=== PATIENT | male | born 1990 | race Caucasian/White ===

== ENCOUNTER 2017-11-07 10:46 | Emergency (ER) | payer SELFPAY | END 2017-11-07 12:59 | disposition home or self-care (01) | LOC: ER 10:46 | DX: L03.011 Cellulitis of right finger (principal) | CPT/HCPCS: 99283 ==

== ENCOUNTER 2018-02-03 13:56 | Emergency (ER) | payer SELFPAY ==
[2018-02-03] MEDS: IBUPROFEN 600 MG TABLET. PO (14:55)
[2018-02-03] MEDS: PENICILLIN G BENZATHINE LA 1,200,000 UNIT/2 ML DISP.SYRIN. IM (14:56)
[2018-02-03] MEDS: DEXAMETHASONE SOD PHOS 20 MG/5 ML VIAL. PO (14:56)
== END 2018-02-03 15:30 | disposition home or self-care (01) ==
LOC: ER 13:56
DX: L53.8 Other specified erythematous conditions (principal); R53.83 Other fatigue; R42 Dizziness and giddiness; M79.1 Myalgia; R07.0 Pain in throat
CPT/HCPCS: 96372; 99283; J0561; J1100

== ENCOUNTER 2018-11-23 21:50 | Emergency (ER) | payer SELFPAY ==
[~2018-11-23] VITALS: Ht 170.2 cm; Wt 168.7 kg
[~2018-11-23 21:50] MED LIST: CEPH-264 PO; SULF1TAB24 PO
[2018-11-23 22:00] VITALS: BP 165/74
--- NOTE | 2018-11-23 22:16 | PHYS DOC ---
Past Medical History Past Medical History: No Pertinent History (MARAH ROTHMAN APRN) Past Surgical History: No Surgical History (MARAH ROTHMAN APRN) Alcohol Use: None Drug Use: None (MARAH ROTHMAN APRN) Adult General Chief Complaint Chief Complaint: EYE PROBLEMS HPI HPI Patient is a 28 year old male presents for evaluation of left eye irritation. He reports just prior to arrival his eyes were itchy and watery and he was rubbing his left eye and now has some irritation. Denies any foreign body in the eye or trauma. He is up-to-date on tetanus immunization. (MARAH ROTHMAN APRN) Review of Systems Review of Systems Constitutional: Denies fever or chills [] Eyes: Denies change in visual acuity, reports irritation left eye [] HENT: Denies nasal congestion or sore throat [] Respiratory: Denies cough or shortness of breath [] Cardiovascular: No additional information not addressed in HPI [] GI: Denies abdominal pain, nausea, vomiting, bloody stools or diarrhea [] : Denies dysuria or hematuria [] Musculoskeletal: Denies back pain or joint pain [] Integument: Denies rash or skin lesions [] Neurologic: Denies headache, focal weakness or sensory changes [] Endocrine: Denies polyuria or polydipsia [] All other systems were reviewed and found to be within normal limits, except as documented in this note. (MARAH ROTHMAN APRN) Current Medications Current Medications Current Medications Medications (Trade) Dose Ordered Sig/[place] Start Time Stop Time Status Last Admin Dose Admin Diphenhydramine HCl (Benadryl) 25 mg 1X ONCE 11/23/18 22:30 11/23/18 22:30 DC 11/23/18 22:19 25 MG Fluorescein Sodium (Ful-Shantal) 1 strip 1X ONCE 11/23/18 22:30 11/23/18 22:30 DC 11/23/18 22:05 1 STRIP Tetracaine HCl (Tetracaine) 1 drop 1X ONCE 11/23/18 22:30 11/23/18 22:30 DC 11/23/18 22:05 1 DROP (CASANDRA MCGOWAN DO) Allergies Allergies Allergies Coded Allergies Type Severity Reaction Last Updated Verified No Known Drug Allergies 02/05/14 No (CASANDRA MCGOWAN DO) Physical Exam Physical Exam Constitutional: Well developed, well nourished, no acute distress, non-toxic appearance. [] HENT: Normocephalic, atraumatic, bilateral external ears normal, oropharynx moist, no oral exudates, nose normal. [] Eyes: PERRLA, EOMI, CLEAR EDEMA FROM LEFT CONJUNCTIVA-CHEMOSIS, WATERY discharge. [] Neck: Normal range of motion, no tenderness, supple, no stridor. [] Skin: Warm, dry, no erythema, no rash. [] Neurologic: Alert and oriented X 3, normal motor function, normal sensory function, no focal deficits noted. [] Psychologic: Affect normal, judgement normal, mood normal. [] (MARAH ROTHMAN APRN) Current Patient Data Vital Signs Vital Signs Date Time Temp Pulse Resp B/P (MAP) Pulse Ox O2 Delivery O2 Flow Rate FiO2 11/23/18 22:00 98.6 86 20 98 Room Air 98.6 (MCGOWANCASANDRA THOMPSON DO) EKG EKG [] (MARAH ROTHMAN APRN) Radiology/Procedures Radiology/Procedures [] (MARAH ROTHMAN APRN) Course & Med Decision Making Course & Med Decision Making Pertinent Labs and Imaging studies reviewed. (See chart for details) [Recommend [id number] allergy medicine or Benadryl for watery discharge and pruritus to eyes. (MARAH ROTHMAN APRN) Dragon Disclaimer Dragon Disclaimer This electronic medical record was generated, in whole or in part, using a voice recognition dictation system. (MARAH ROTHMAN APRN) Departure Departure Impression: Primary Impression: Chemosis of left conjunctiva Disposition: 01 HOME, SELF-CARE Condition: STABLE Referrals: NO PCP (PCP) Additional Instructions: Chemosis is the swelling (or edema) of the conjunctiva. It is due to the oozing of exudate from abnormally permeable capillaries. In general, chemosis is a nonspecific sign of eye irritation. The outer surface covering appears to have fluid in it. The conjunctiva becomes swollen and gelatinous in appearance. Temd-gzt-dysagny antihistamines and cool compresses placed on the eyes may help with symptoms due to allergies. Attending Signature Attending Signature I have reviewed the PA/VENEER PRESS OPERATOR's note and plan of care. I was available for consultation as needed during the patient's visit in the emergency department. I agree with the clinical impression, plan, and disposition. (CASANDRA MCGOWAN DO) MARAH ROTHMAN APRN November 23, 2018 22:16 CASANDRA MCGOWAN DO November 24, 2018 03:09
[2018-11-23] MEDS ORDERED: FLUORESCEIN OPHTH TEST STRIP. OS ONE (22:30)
[2018-11-23] MEDS ORDERED: TETRACAINE 0.5% OPHTH SOLUTION 4ML BOTTLE. OS ONE (22:30)
[2018-11-23] MEDS ORDERED: diphenhydrAMINE HCL 25 MG CAPSULE PO ONE (22:30)
== END 2018-11-23 22:23 | disposition home or self-care (01) ==
LOC: ER 21:50
DX: H11.422 Conjunctival edema, left eye (principal)
CPT/HCPCS: 99284; Q0163

== ENCOUNTER 2019-05-29 14:29 | Emergency (ER) | payer SELFPAY ==
[~2019-05-29] VITALS: Ht 170.2 cm; Wt 172.4 kg
[2019-05-29 15:10] VITALS: BP 132/81
--- NOTE | 2019-05-29 15:43 | PHYS DOC ---
Past Medical History Past Medical History: No Pertinent History Past Surgical History: No Surgical History Alcohol Use: None Drug Use: None Adult General Chief Complaint Chief Complaint: NAUSEA/VOMITING/DIARRHA HPI HPI Patient is a 28 year old AA male who presents to the emergency department with complaints of nausea, vomiting, and diarrhea with abdominal cramping that began yesterday. Patient states he has had at least 6 episodes of vomiting, and 8 episodes of watery diarrhea in the last 24 hours. He denies any fever, cough, shortness breath, chest pain, palpitations, dysuria, hematuria, or decreased urine output. Patient states he has been able to drink water today without vomiting. He currently denies any abdominal pain. He states the abdominal cramping happens just before diarrhea episodes. All other ROS is neg unless otherwise noted in HPI. Review of Systems Review of Systems See Above Allergies Allergies Allergies Coded Allergies Type Severity Reaction Last Updated Verified No Known Drug Allergies 02/05/14 No Physical Exam Physical Exam See Above Constitutional: Well developed, well nourished, no acute distress, non-toxic appearance, obese. [] HENT: Normocephalic, atraumatic, bilateral external ears normal, moist mucous membranes, oropharynx moist, no oral exudates, nose normal. [] Eyes: PERRLA, EOMI, conjunctiva normal, no discharge. [] Neck: Normal range of motion, supple, no stridor. [] Cardiovascular:Heart rate regular rhythm, no murmur [] Lungs & Thorax: Bilateral breath sounds clear to auscultation [] Abdomen: Bowel sounds normal, soft, no tenderness, no masses, no pulsatile masses. [] Skin: Warm, dry, no erythema, no rash. [] Back: No tenderness Extremities: No cyanosis, ROM intact, no edema. [] Neurologic: Alert and oriented X 3, no focal deficits noted. [] Psychologic: Affect normal, judgement normal, mood normal. [] Current Patient Data Vital Signs Vital Signs Date Time Temp Pulse Resp B/P (MAP) Pulse Ox O2 Delivery O2 Flow Rate FiO2 05/29/19 15:10 98.0 85 20 132/81 (98) 96 Room Air 98.0 EKG EKG [] Radiology/Procedures Radiology/Procedures [] Course & Med Decision Making Course & Med Decision Making Pertinent Labs and Imaging studies reviewed. (See chart for details) dx: medical screening exam A medical screening exam was performed, patient was found to have no emergent medical condition. The plan of care would've included a PO challenge and prescription for Zofran. However, the patient eloped after talking with registration. [] [] Dragon Disclaimer Dragon Disclaimer This electronic medical record was generated, in whole or in part, using a voice recognition dictation system. Departure Departure Impression: Primary Impression: Encounter for medical screening examination Disposition: HOME, SELF-CARE (eloped after speaking with registration) Condition: STABLE Referrals: NO PCP (PCP) [facility] May 29, 2019 15:43
== END 2019-05-29 15:58 | disposition home or self-care (01) ==
LOC: ER 14:29
DX: Z00.8 Encounter for other general examination (principal); R11.2 Nausea with vomiting, unspecified; R19.7 Diarrhea, unspecified; R10.9 Unspecified abdominal pain
CPT/HCPCS: 99281

== ENCOUNTER 2020-01-16 19:29 | Emergency (ER) | payer SELFPAY ==
[~2020-01-16] VITALS: Ht 170.2 cm; Wt 173.0 kg
--- NOTE | 2020-01-16 19:48 | PHYS DOC ---
Past Medical History Past Medical History: No Pertinent History Past Surgical History: No Surgical History Smoking Status: Never Smoker Alcohol Use: None Drug Use: None General Adult EDM: Chief Complaint: Palpitations HPI: HPI: Patient is a 29 year old male presents with a chief complaint of intermittent left occipital parietal headaches that are been intermittent for the last week. Patient denies any focal neurological deficits. There is no modifying factors for the headache. Pain is described as a pain. Pain is moderate in nature at worst and mild currently. Patient has taken NSAIDs without significant relief. Patient also describes 3 to 4-day history of intermittent heart skipping a beat and palpitations. Patient denies any chest pain or shortness of breath. Patient denies any fevers chills cough vomiting or diarrhea no recent sick contacts Review of Systems: Review of Systems: Constitutional: Denies fever or chills. [] Eyes: Denies change in visual acuity. [] HENT: Denies nasal congestion or sore throat. [] Respiratory: Denies cough or shortness of breath. [] Cardiovascular: Denies chest pain or edema.+ palpitations GI: Denies abdominal pain, nausea, vomiting, bloody stools or diarrhea. [] : Denies dysuria. [] Musculoskeletal: Denies back pain or joint pain. [] Integument: Denies rash. [] Neurologic: , focal weakness or sensory changes. [+ headache] Endocrine: Denies polyuria or polydipsia. [] Lymphatic: Denies swollen glands. [] Psychiatric: Denies depression or anxiety. [] Heart Score: Risk Factors: Risk Factors: DM, Current or recent (<one month) smoker, HTN, HLP, family history of CAD, obesity. Risk Scores: Score 0 - 3: 2.5% MACE over next 6 weeks - Discharge Home Score 4 - 6: 20.3% MACE over next 6 weeks - Admit for Clinical Observation Score 7 - 10: 72.7% MACE over next 6 weeks - Early Invasive Strategies Family History: Family History: mom w/ brain cancer Allergies: Allergies: Allergies Coded Allergies Type Severity Reaction Last Updated Verified No Known Drug Allergies 02/05/14 No Physical Exam: PE: Constitutional: Well developed, well nourished, no acute distress, non-toxic appearance. [] HENT: Normocephalic, atraumatic, bilateral external ears normal, oropharynx moist, no oral exudates, nose normal. [] Eyes: PERRLA, EOMI, conjunctiva normal, no discharge. [] Neck: Normal range of motion, no tenderness, supple, no stridor. [] Cardiovascular:Heart rate regular rhythm, no murmur [] Lungs & Thorax: Bilateral breath sounds clear to auscultation [] Abdomen: Bowel sounds normal, soft, no tenderness, no masses, no pulsatile masses. [] Skin: Warm, dry, no erythema, no rash. [] Back: No tenderness, no CVA tenderness. [] Extremities: No tenderness, no cyanosis, no clubbing, ROM intact, no edema. [] Neurologic: Alert and oriented X 3, normal motor function, normal sensory function, no focal deficits noted. [] Psychologic: Affect normal, judgement normal, mood normal. [] Current Patient Data: Labs: Laboratory Tests Test 01/16/20 20:35 White Blood Count 9.0 x10^3/uL Red Blood Count 4.55 x10^6/uL Hemoglobin 11.3 g/dL Hematocrit 34.6 % Mean Corpuscular Volume 76 fL Mean Corpuscular Hemoglobin 25 pg Mean Corpuscular Hemoglobin Concent 33 g/dL Red Cell Distribution Width 16.2 % Platelet Count 332 x10^3/uL Neutrophils (%) (Auto) 56 % Lymphocytes (%) (Auto) 33 % Monocytes (%) (Auto) 8 % Eosinophils (%) (Auto) 2 % Basophils (%) (Auto) 1 % Neutrophils # (Auto) 5.0 x10^3/uL Lymphocytes # (Auto) 3.0 x10^3/uL Monocytes # (Auto) 0.7 x10^3/uL Eosinophils # (Auto) 0.2 x10^3/uL Basophils # (Auto) 0.1 x10^3/uL Sodium Level 137 mmol/L Potassium Level 4.1 mmol/L Chloride Level 102 mmol/L Carbon Dioxide Level 28 mmol/L Anion Gap 7 Blood Urea Nitrogen 11 mg/dL Creatinine 1.0 mg/dL Estimated GFR (Cockcroft-Gault) 89.6 BUN/Creatinine Ratio 11 Glucose Level 80 mg/dL Calcium Level 8.6 mg/dL Magnesium Level 2.0 mg/dL Total Bilirubin 0.2 mg/dL Aspartate Amino Transf (AST/SGOT) 24 U/L Alanine Aminotransferase (ALT/SGPT) 30 U/L Alkaline Phosphatase 81 U/L Troponin I Quantitative < 0.017 ng/mL Total Protein 8.0 g/dL Albumin 3.4 g/dL Albumin/Globulin Ratio 0.7 EKG: EKG: [] EKG interpreted by me normal sinus rhythm with a rate of 80, normal axis normal intervals normal ST segments Radiology/Procedures: Radiology/Procedures: [][facility] [address] [place] [address] IMAGING REPORT Signed PATIENT: MEET MARIN ACCOUNT: [id number] : 1990 LOCATION: ER AGE: 29 SEX: M EXAM STATUS: REG ER ORD. PHYSICIAN: SOULEYMANE RAMÍREZ MD REASON: tolentino PROCEDURE: CT HEAD WO CONTRAST Exam: CT head INDICATION: Headache TECHNIQUE: Sequential axial images through the head were obtained without the administration of IV contrast. Comparisons: None FINDINGS: No focal parenchymal lesion or hemorrhage is identified. There is no midline shift or sulcal effacement. No acute vascular territory infarction is identified. Norwood-white distinction is preserved. The ventricular system is within normal limits without compression hydrocephalus. The basal cisterns are well maintained. The visualized portions of the paranasal sinuses and mastoid air cells are well-pneumatized. No acute fractures. IMPRESSION: No acute intracranial abnormality. Exposure: One or more of the following in the visualized dose reduction techniques were utilized for this examination: 1. Automated exposure control 2. Adjustment of the MA and/or KV according to patient size Use of iterative of reconstructive technique Electronically signed by: Esperanza Porter MD (01/16/2020 8:25 PM) [id number] DICTATED and SIGNED BY: ESPERANZA PORTER MD DATE: 01/16/202024 Course & Med Decision Making: Course & Med Decision Making Pertinent Labs and Imaging studies reviewed. (See chart for details) [] Reassessment 2114: Patient's alert and oriented. No evidence of arrhythmia on the monitor. Patient is clinically stable. Work-up reassuring. Patient will give follow-up with a wood barker for Holter monitoring. Change in headache - A significant change in severity of the headache including changes in location or quality. Other criteria take into account most red flag symptoms and also may reflect change (if a stable primary headache were previously present) but do not reflect a previously tolerated headache that now becomes suddenly disabling in severity. Change also includes any and all new symptoms that may be associated with a headache: arm numbness, speech disturbance, etc. Indications that would warrant imaging include: ( )Head trauma ( )New or change in headache above 50 years of age ( )Abnormal neurologic exam ( )Thunderclap headache ( )Headache radiating to the neck ( )Trigeminal pain (x )Persistent and positional headaches ( )Temporal headaches in patients over 55 years of age ( )New onset headache in pre-school children or younger (<6 years of age) ( )New onset headache in pediatric patients with disabilities for which headache is a concern as inferred from behavior ( )Occipital headache in children Head CT is negative. Normal neurological exam without meningeal signs. Doubt intracranial hemorrhage or subarachnoid hemorrhage or meningitis. Dragon Disclaimer: Dragon Disclaimer: This electronic medical record was generated, in whole or in part, using a voice recognition dictation system. Departure Departure Impression: Primary Impression: Palpitations Additional Impression: Headache Disposition: 01 HOME, SELF-CARE Condition: STABLE Referrals: NO PCP (PCP) ESTIVEN PAREDES MD 2-3 DAYS Patient Instructions: General Headache Without Cause, Palpitations Additional Instructions: EMERGENCY DEPARTMENT GENERAL DISCHARGE INSTRUCTIONS THANK YOU for coming to [facility] Emergency Department (ED) today and trusting us with your care. We trust that you had a positive experience in our Emergency Department. If you wish to speak to the department Management you can contact the manager emergency department at . YOUR FOLLOW UP INSTRUCTIONS ARE FOLLOWS: Do you have a private doctor? If you do not have a private doctor, please ask for a resource list of physicians or clinics that may be able to assist you with follow up care. The Emergency Physician has interpreted your x-rays. The X-ray specialist will also review them. If there is a change in the findings you will be notified in 48 hours when at all possible. A lab test or lab culture may have been done, your results will be reviewed and you will be notified if you need a change in treatment. ADDITIONAL INSTRUCTIONS AND INFORMATION Your care today has been supervised by a physician who is specially trained in emergency care. Many problems require more than one evaluation for a complete diagnosis and treatment. We recommend that you schedule your follow up appointment as recommended to ensure complete treatment of your illness or injury. If you are unable to obtain follow up care and continue to have a problem, or if your condition worsens we recommend that you return to the ED. We are not able to safely determine your condition over the phone nor are we able to give sound medical advice over the phone. For these safety reasons, if you call for medical advice we will ask you to come to the ED for further evaluation If you have any questions regarding these discharge instructions please call the ED at . SAFETY INFORMATION In the interest of safety, wellness, and injury prevention; we encourage you to wear your seatbelt, if you smoke; quit smoking, and we encourage your family to use protective helmet for bicycling and other sporting events that present an increased risk for head injury. IF YOUR SYMPTOMS WORSEN OR NEW SYMPTOMS DEVELOP, OR YOU HAVE CONCERNS ABOUT YOUR CONDITION; OR IF YOUR CONDITION WORSENS WHILE YOU ARE WAITING FOR YOUR FOLLOW UP APPOINTMENT; EITHER CONTACT YOUR PRIMARY CARE DOCTOR, THE PHYSICIAN WHOSE NAME AND NUMBER YOU WERE GIVEN, OR RETURN TO THE ED IMMEDIATELY. Justicifation of Admission Dx: Justifications for Admission: Justification of Admission Dx: N/A SOULEYMANE RAMÍREZ MD Jan 16, 2020 19:48
--- NOTE | 2020-01-16 20:28 | RAD ---
Exam: CT head INDICATION: Headache TECHNIQUE: Sequential axial images through the head were obtained without the administration of IV contrast. Comparisons: None FINDINGS: No focal parenchymal lesion or hemorrhage is identified. There is no midline shift or sulcal effacement. No acute vascular territory infarction is identified. Norwood-white distinction is preserved. The ventricular system is within normal limits without compression hydrocephalus. The basal cisterns are well maintained. The visualized portions of the paranasal sinuses and mastoid air cells are well-pneumatized. No acute fractures. IMPRESSION: No acute intracranial abnormality. Exposure: One or more of the following in the visualized dose reduction techniques were utilized for this examination: 1. Automated exposure control 2. Adjustment of the MA and/or KV according to patient size Use of iterative of reconstructive technique Electronically signed by: Esperanza Molina MD (01/16/2020 8:25 PM) [id number]
[2020-01-16 20:46] LABS: BASO # 0.1 x10^3/uL (0.0-0.2); BASO % 1 % (0-3); EOS # 0.2 x10^3/uL (0.0-0.7); EOS % 2 % (0-3); HEMATOCRIT 34.6 % (39.0-53.0); HEMOGLOBIN 11.3 g/dL (13.0-17.5); LYMPH % 33 % (24-48); MEAN CORPUSCULAR HEMOGLOBIN 25 pg (25-35); MEAN CORPUSCULAR HGB CONC 33 g/dL (31-37); MEAN CORPUSCULAR VOLUME 76 fL (79-100); MONO # 0.7 x10^3/uL (0.0-1.1); MONO % 8 % (0-9); NEUT % 56 % (31-73); PLATELET COUNT 332 x10^3/uL (140-400); RED BLOOD COUNT 4.55 x10^6/uL (4.30-5.70); RED CELL DISTRIBUTION WIDTH 16.2 % (11.5-14.5)
[2020-01-16 20:59] LABS: CALCIUM 8.6 mg/dL (8.5-10.1); GFR 89.6; POTASSIUM 4.1 mmol/L (3.5-5.1)
[2020-01-16 21:06] LABS: ALBUMIN 3.4 g/dL (3.4-5.0); ALBUMIN/GLOBULIN RATIO 0.7 (1.0-1.7); TOTAL BILIRUBIN 0.2 mg/dL (0.2-1.0)
[2020-01-16 21:36] VITALS: BP 125/65
--- NOTE | 2020-01-17 11:25 | EKG ---
[facility] [address] [place] [address] Test Date: 2020-01-16 Test Time: 19:51:50 Pat Name: MEET MARIN Department: Room: Gender: M Head Of It: : 1990 Requested By: SOULEYMANE RAMÍREZ Order Number: [id number] Reading MD: Measurements Intervals [place] Rate: 80 P: 53 SC: 168 QRS: 52 QRSD: 84 T: 19 QT: 350 QTc: 407 Interpretive Statements SINUS RHYTHM OTHERWISE NORMAL ECG RI6.02 No previous ECG available for comparison
== END 2020-01-16 21:46 | disposition home or self-care (01) ==
LOC: ER 19:29
DX: R00.2 Palpitations (principal); R51 Headache
CPT/HCPCS: 36415; 70450; 80053; 83735; 84484; 85025; 93005; 99285